=== PATIENT | male | born 2000 | race Caucasian/White ===

== ENCOUNTER 2024-05-12 14:24 | Emergency (ER) | payer OTHER, SELFPAY ==
[~2024-05-12] VITALS: Ht 175.3 cm; Wt 104.5 kg
[2024-05-12 14:30] VITALS: TEMP 98.2
[2024-05-12] MEDS ORDERED: ACET325C5 PO (14:36)
[2024-05-12] MEDS: ACETAMINOPHEN 500 MG TAB PO ONE (15:45)
[2024-05-12] MEDS: BOOSTRIX VACCINE (TETANUS/DIPHTH/ACEL. PERTUSSIS) 0.5ML SYR IM ONE (15:46)
[2024-05-12 16:21] VITALS: BP 129/84; O2SAT 98
== END 2024-05-12 16:22 | disposition home or self-care (01) ==
LOC: M ED 14:24
DX: S89.301A Unspecified physeal fracture of lower end of right fibula, initial encounter for closed fracture (principal); W01.0XXA Fall on same level from slipping, tripping and stumbling without subsequent striking against object, initial encounter; Y92.89 Other specified places as the place of occurrence of the external cause; Y93.01 Activity, walking, marching and hiking; Y99.8 Other external cause status

== ENCOUNTER → 2024-06-12 | Outpatient (CLI) | payer OTHER ==
[~2024-06-12] MED LIST: ACET325C5 PO
== END ==
LOC: M SOG 08:07
PROVIDERS: ATTEND Physician Assistant
DX: M25.571 Pain in right ankle and joints of right foot (principal)

== ENCOUNTER → 2025-07-18 | Outpatient (REF) | LOC: M EMP 08:35 | PROVIDERS: ATTEND Family Medicine | DX: Z01.89 Encounter for other specified special examinations (principal) ==